=== PATIENT | male | born 1980 | race Two or more races ===

== ENCOUNTER 2020-01-08 20:29 | Emergency (ER) | payer MEDICAID ==
[~2020-01-08] VITALS: Ht 165.1 cm; Wt 81.0 kg
[2020-01-08 21:47] VITALS: BP 136/86
== END 2020-01-08 21:55 | disposition home or self-care (01) ==
LOC: ED 21:40
DX: B35.3 Tinea pedis (principal); F17.200 Nicotine dependence, unspecified, uncomplicated
CPT/HCPCS: 99283